=== PATIENT | female | born 1940 | race Caucasian/White ===

== ENCOUNTER → 2016-07-19 | Outpatient (CLI) | payer OTHER ==
--- NOTE | 2016-07-19 14:54 | DI ---
MRI UP EXTREMITY JNT W/O CN,07/19/2016 1:24 PM: Clinical History: Left shoulder pain and weakness. Previous Exam: None at this facility. Findings: Multiplanar MR images are obtained through the left shoulder without contrast. Bony alignment is anatomic. No fractures are seen. There is degenerative hypertrophy of the left acro mioclavicular joint with some mass effect on the underlying supraspinatus tendon. There is fluid within the subacromial bursa. There is also a shoulder joint effusion. There is fluid within the subcoracoid bursa as well. There are some downwardly projecting osteophytes involving the acromion process. There is some increased signal within the distal supraspinatus tendon to include an interstitial tear at the myotendinous junction of the supraspinatus tendon. The infraspinatus tendon is intact. There is also some increased signal involving the subscapularis tendon as well as the long head of th e biceps tendon and some fluid within the tendon sheath of the long head of the biceps tendon. The major vascular flow voids are unremarkable. There is some complex signal within the posterior glenoid labrum. Signal within the surrounding musculature is unremarkable. There is no lymphadenopathy. Impression: 1. Tendinosis of the supraspinatus tendon. 2. Tenosynovitis of the long head of the biceps tendon. 3. 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 4. Fluid within the subacromial and subcoracoid bursa most consistent with bursitis. 5. Shoulder joint effusion.
== END ==
LOC: MRI 13:16
PROVIDERS: ATTEND Physician Assistant Surgical
DX: M25.512 Pain in left shoulder (principal); M65.812 Other synovitis and tenosynovitis, left shoulder; M75.52 Bursitis of left shoulder; M25.412 Effusion, left shoulder; S43.492A Other sprain of left shoulder joint, initial encounter
CPT/HCPCS: 73221